=== PATIENT | male | born 1970 | race Caucasian/White ===

== ENCOUNTER 2019-01-10 08:15 | Observation (INO) | payer OTHER ==
[~2019-01-10] VITALS: Ht 160 cm; Wt 73.8 kg
[~2019-01-10 08:15] MED LIST: ASPIRIN 81M81 MG/TA2 PO; BLOOD THINNER; CELEXA 20MG20 MG/TAB PO; INDOCIN 25MG CA25 MG PO; LIPITOR 10MG10 MG PO; LOPRESSOR 225 MG/TAB PO; NITROSTAT0.4 MG/TAB SL; NORCO 325 MG-51 TAB PO; PERCOCET 325 MG1 TA2 PO; PLAVIX 75MG TAB75 MG PO; PRILOSEC 20MG20 MG PO; PROTONIX 40MG T40 MG PO; ULTRAM 50MG TAB50 MG PO; [UNRECOGNIZED DRUG - OTHER]
[2019-01-10 08:39] LABS: BASO # 0.1 (0.0-0.2); BASO % 0.7 % (0.0-2.0); EOS # 0.3 (0.0-0.7); EOS % 3.7 % (0-4.0); GRAN # 5.1 (1.4-6.5); GRAN % 62.8 % (42.2-75.2); HEMOGLOBIN 15.9 g/dl (13.5-18.0); LYMPH % 24.3 % (20.0-51.0); MEAN CELL VOLUME 88 fl (80.0-100.0); MEAN CORPUSCULAR HEMOGLOBIN 29 pg (27.0-31.0); MEAN CORPUSCULAR HGB CONC 33 g/dl (33.0-37.0); MEAN PLATELET VOLUME 9.7 fl (7.4-10.4); MONO # 0.7 (0.1-0.6); MONO % 8.3 % (1.7-9.3); PLATELET COUNT 108 K/mm3 (130-400); RED BLOOD COUNT 5.43 M/mm3 (4.20-5.60); REDCELL DISTRIBUTION WIDTH-CV 12.9 % (11.5-14.5)
[2019-01-10 08:43] LABS: INR 0.9 (0.8-3.0); PROTHROMBIN TIME 10.9 SECONDS (9.7-12.8)
[2019-01-10 08:50] LABS: ALANINE AMINOTRANSFERASE 16 U/L (21-72); ALBUMIN 4.3 gm/dL (3.5-5.0); ALKALINE PHOSPHATASE 63 U/L (50-136); ANION GAP 10 mmol/L (7-16); AST,SGOT 29 U/L (15-37); BLOOD UREA NITROGEN 18 mg/dL (9-20); CARBON DIOXIDE 24 mmol/L (22-30); CHLORIDE 108 mmol/L (98-107); CREATININE, serum 0.95 (0.66-1.25); GLUCOSE 96 mg/dL (74-106); LIPASE 48 U/L (23-300); POTASSIUM 4.1 mmol/L (3.4-5.0); SODIUM 141 mmol/L (137-145); TOTAL PROTEIN 7.4 gm/dL (6.4-8.2)
[2019-01-10 09:04] LABS: TROPONIN-I < 0.012 ng/mL (0.000-0.035)
[2019-01-10 10:13] LABS: D-DIMER < 200.00 ng/mLDDu (200-230)
--- NOTE | 2019-01-10 14:00 | NUR ---
PT ADMITTED TO FLOOR AT THIS TIME. DR. HANDLEY INTO SEE PT RIGHT AWAY.
[2019-01-10 16:08] LABS: CREATINE KINASE 44 U/L (55-170)
[2019-01-10 16:18] LABS: TROPONIN-I 3 HR POST INITIAL < 0.012 ng/mL (0.000-0.034)
[2019-01-10 16:25] VITALS: BP 130/76; PULSE 78; TEMP 97.6
--- NOTE | 2019-01-10 19:00 | NUR ---
PT HAD UNEVENTFUL AFTERNOON. PT WAS MAINLY CONSERNED ABOUT EATING, RECIEVED AN ORDER FOR PT TO HAVE A HEART HEALTHY DIET UNTIL MIDNIGHT THEN NPO AT THAT TIME. DID REVIEW THIS WITH PT. NO OTHER ISSUES OR CONSERNS VOICED. WENT OVER PLAN OF CARE AND UPCOMING PROCEDURES AND TESTS. NO QUESTIONS ASKED.
--- NOTE | 2019-01-10 19:45 | NUR ---
Patient assessed at this time. Alert and oriented, and able to make needs known. Denies having pain and discomfort. Peripheral IV to left forearm. NS running at 75 ml/hr per orders. Site is without redness, warmth, swelling, and pain. Reports SOB and dysnpea on exertion. Denies at rest. LS CTA, except right lower lobe has expiratory wheezes. HRR. BSAx4. Abdomen soft and non-tender. No edema. Continues on detox protocol. Has not been scoring enough for medication at this time. Resting in bed watching TV at this time. Call light is within reach.
[2019-01-10 20:32] VITALS: BP 136/84; PULSE 85; TEMP 98.1
[2019-01-10 21:40] VITALS: BP 134/84; PULSE 80; TEMP 97.9
[2019-01-10 23:15] VITALS: BP 148/89; PULSE 86; TEMP 98.4
[2019-01-11] VITALS (10 sets, daily range): BP systolic 102–161; BP diastolic 56–97; PULSE 79–123; TEMP 97.9–98.6
--- NOTE | 2019-01-11 02:58 | NUR ---
Patient has no been scoring high enough on detox protocol for PRN medications, max was 1 for pulse above 90. Denies having pain and discomfort. NPO since midnight for procedure in the morning. NS continues at 75 ml/hr to left AC. Denies having any questions, needs, or concerns at this time. Resting in bed with eyes closed at this time. Call light is within reach.
--- NOTE | 2019-01-11 05:46 | NUR ---
Denies having pain and discomfort. Patient did not seem to sleep much tonight, but states that he is feeling fine. Denies having pain and discomfort. Signed consent for Lexiscan today. Voices no questions or concerns regarding Lexiscan. Resting in bed watching TV at this time. Call light is within reach. NS continues at 75 ml/hr.
[2019-01-11 06:47] LABS: BASO # 0.1 (0.0-0.2); BASO % 0.8 % (0.0-2.0); EOS # 0.3 (0.0-0.7); EOS % 3.9 % (0-4.0); GRAN # 6.1 (1.4-6.5); GRAN % 70.1 % (42.2-75.2); HEMATOCRIT 44.4 % (42.0-52.0); HEMOGLOBIN 14.6 g/dl (13.5-18.0); LYMPH # 1.6 (1.2-3.4); LYMPH % 18.4 % (20.0-51.0); MEAN CELL VOLUME 88 fl (80.0-100.0); MEAN CORPUSCULAR HEMOGLOBIN 29 pg (27.0-31.0); MEAN CORPUSCULAR HGB CONC 33 g/dl (33.0-37.0); MEAN PLATELET VOLUME 9.9 fl (7.4-10.4); MONO # 0.6 (0.1-0.6); MONO % 6.6 % (1.7-9.3); PLATELET COUNT 106 K/mm3 (130-400); RED BLOOD COUNT 5.05 M/mm3 (4.20-5.60); REDCELL DISTRIBUTION WIDTH-CV 12.9 % (11.5-14.5)
[2019-01-11 07:04] LABS: CALCIUM 8.6 mg/dL (8.4-10.2); CHOLESTEROL RISK RATIO 6.1; CREATININE, serum 0.93 (0.66-1.25); POTASSIUM 3.9 mmol/L (3.4-5.0)
--- NOTE | 2019-01-11 07:49 | NUR ---
Patient went down for MRI, and is now with nuclear med for Lexiscan. Report given to day shift nurse.
[2019-01-11] MEDS ORDERED: NITROSTAT0.4 MG/TAB SL (12:21)
[2019-01-11] MEDS ORDERED: LIPITOR20 MG PO (12:22)
[2019-01-11] MEDS ORDERED: AMOXICILLIN 8751 TAB PO (12:23)
[2019-01-11] MEDS ORDERED: FLONASEALLERGY NS (12:23)
--- NOTE | 2019-01-11 14:00 | NUR ---
PT DISCHARGE EDUCATION PROVIDED. NO QUESTIONS VOICED AT THIS TIME THIS NURSE PROVIDED PT WRITTEN SCRIPTS FROM DR. EVANS, COPIES LEFT ON THE CHART. PT INFORMED ABOUT UPCOMING APPOINTMENTS THAT WHERE MADE FOR HIM AND THE LOCATIONS OF THE APPOINTMENTS. NO QUESTIONS VOICED. WORK RELEASE INCLUDED IN PAPERWORK
--- NOTE | 2019-01-11 14:45 | NUR ---
PT IV REMOVED, TELE TAKEN OFF. PT DENIED NEED FOR ESCORT OUT OF FACILITY, ACCOMPANIED.
--- NOTE | 2019-01-11 15:05 | NUR ---
SW unable to meet with patient before discharge.
== END 2019-01-11 14:45 | disposition home or self-care (01) ==
LOC: COL.ER 08:15 → MEDICAL 13:08
PROVIDERS: Emergency Medicine; Physician Assistant; ADMIT Hospitalist
DX: R07.9 Chest pain, unspecified (principal); R20.0 Anesthesia of skin; R53.1 Weakness; R25.2 Cramp and spasm; K21.9 Gastro-esophageal reflux disease without esophagitis; I25.10 Atherosclerotic heart disease of native coronary artery without angina pectoris; Z95.5 Presence of coronary angioplasty implant and graft; E78.5 Hyperlipidemia, unspecified; M43.06 Spondylolysis, lumbar region; R91.8 Other nonspecific abnormal finding of lung field; Z79.82 Long term (current) use of aspirin; F17.210 Nicotine dependence, cigarettes, uncomplicated; D69.6 Thrombocytopenia, unspecified; D18.09 Hemangioma of other sites; G43.909 Migraine, unspecified, not intractable, without status migrainosus; J32.9 Chronic sinusitis, unspecified
CPT/HCPCS: A9500; A9585; G0378; J1650; J2060; J2270; J2765; J2785; J7030; Q9967

== ENCOUNTER → 2019-01-15 | Outpatient (CLI) | payer OTHER, BC ==
[~2019-01-15] MED LIST changes: +AMOXICILLIN 8751 TAB PO; +FLONASEALLERGY NS; +LIPITOR20 MG PO
== END ==
LOC: ZCOL.LAB 16:49
DX: J32.0 Chronic maxillary sinusitis (principal)

== ENCOUNTER 2019-06-21 08:16 | Outpatient (CLI) | payer OTHER ==
[~2019-06-21] VITALS: Ht 160.1 cm; Wt 73.8 kg
[2019-06-21 09:02] VITALS: BP 140/97; PULSE 84; TEMP 98.2
[2019-06-21] MEDS ORDERED: NITROSTAT0.4 MG/TAB SL (09:06)
[2019-06-21] MEDS ORDERED: PRILOSEC 20MG20 MG PO (09:07)
[2019-06-21] MEDS ORDERED: ADVIL200 MG PO (09:08)
[2019-06-21] MEDS ORDERED: CEPHALEXIN500 M1 PO (09:58)
[2019-06-21 10:27] VITALS: BP 145/88; PULSE 87
--- NOTE | 2019-06-21 10:28 | NUR ---
Discharge instructions given to pt.Pt verbalizes understaning.Pt escorted out by this nurse.
== END 2019-06-21 10:29 | disposition home or self-care (01) ==
LOC: COL.CAR 08:16
DX: R55 Syncope and collapse (principal)

== ENCOUNTER 2021-05-25 03:29 | Inpatient (IN) | payer OTHER ==
[~2021-05-25] VITALS: Ht 160 cm; Wt 71.0 kg
[2021-05-25] VITALS (285 sets, daily range): BP systolic 121–159; BP diastolic 86–98; PULSE 75–103; TEMP 97–98.2; O2SAT 92–100
[~2021-05-25 03:29] MED LIST changes: +ADVIL200 MG PO; +CEPHALEXIN500 M1 PO
[2021-05-25 03:51] LABS: BASO # 0.1 K/mm3 (0.0-0.2); BASO % 0.8 % (0.0-2.0); EOS # 0.2 K/mm3 (0.0-0.7); EOS % 2.4 % (0-4.0); GRAN % 63.5 % (42.2-75.2); HEMATOCRIT 41.5 % (42.0-52.0); HEMOGLOBIN 14.1 g/dl (13.5-18.0); MEAN CELL VOLUME 86 fl (80.0-100.0); MEAN CORPUSCULAR HEMOGLOBIN 29 pg (27.0-31.0); MEAN CORPUSCULAR HGB CONC 34 g/dl (33.0-37.0); MEAN PLATELET VOLUME 9.9 fl (7.4-10.4); MONO # 0.6 K/mm3 (0.1-0.6); MONO % 8.2 % (1.7-9.3); PLATELET COUNT 93 K/mm3 (130-400); RED BLOOD COUNT 4.84 M/mm3 (4.20-5.60); REDCELL DISTRIBUTION WIDTH-CV 12.4 % (11.5-14.5)
[2021-05-25 04:00] LABS: PROTHROMBIN TIME 11.2 SECONDS (9.7-12.8)
[2021-05-25 04:03] LABS: PARTIAL THROMBOPLASTIN TIME 30.1 SECONDS (26.0-37.0)
[2021-05-25 04:08] LABS: ALBUMIN 3.8 gm/dL (3.5-5.0); BILIRUBIN,TOTAL 0.3 mg/dL (0.2-1.2); CALCIUM 9.5 mg/dL (8.4-10.2); CREATININE, serum 1.03 mg/dL (0.72-1.25); POTASSIUM 3.7 mmol/L (3.5-4.5); TOTAL PROTEIN 6.7 gm/dL (6.2-8.1)
[2021-05-25 04:15] LABS: TROPONIN-I 0.087 ng/mL (0.00-0.033)
--- NOTE | 2021-05-25 06:48 | NUR ---
PT ARRIVES TO MEDICAL FLOOR ROOM 351 AT 0600, PT A/OX4, INDEPENDENT, VSS, DENIES CHEST PAIN,N,V,D,. HEP GTT INFUSING AT 1000U/HR TO LAC IV. ASSESMENT COMPLETE. MED REC COMPLETE AND REVIEWED. PT ORIENTED TO FLOOR AND HOSPITAL POLICY. THIS NURSE CONTACTED PATTERNMAKER GRADER CONSULT; COMPLETE. ALL QUESTIONS/CONCERNS ANSWERED. POC DISCUSSED WITH PT. PT VERBALIZES UNDERSTANDING. CALL LIGHT WITHIN REACH.
--- NOTE | 2021-05-25 08:35 | NUR ---
NOTIFED BOBO KEMP ON pt's 3HR TROPONIN AT 0.149.
--- NOTE | 2021-05-25 09:30 | NUR ---
ASSESSMENT COMPLETE. PT COOPERATIVE WITH CARES. PT DENIES PAIN, PALPITATIONS OR DIZZINESS. PT SCHEDULED FOR HEART CATHETERIZATION. CONSENT PAPERWORK COVERED WITH PT AND SIGNED. PT STATES HE HAS NO OTHER NEEDS AT THIS TIME. CALL LIGHT WITHIN REACH.
--- NOTE | 2021-05-25 10:12 | NUR ---
Initial visit; Patient thanked Motor Teacher for looking in on him and offering God's Blessings.
--- NOTE | 2021-05-25 10:28 | NUR ---
NOTIFED BOBO KEMP ON pt's 6HR TROPONIN AT 0.154
--- NOTE | 2021-05-25 12:30 | NUR ---
PT TRANSPORTED TO [facility].
--- NOTE | 2021-05-25 12:50 | NUR ---
SEE MERGE FOR ALL MEDICATION ADMINISTRATION TIMES/DOSAGES AND INTRA/POST SEDATION ASSESSMENT.
--- NOTE | 2021-05-25 13:55 | NUR ---
Arrived to the unit from the microbiology lab assistant; alert and slightly drowsy. Right radial site soft with no hematoma formation. VS WNL. Call light left within reach.
--- NOTE | 2021-05-25 16:13 | NUR ---
Information Tech met with patient and patient's , Abdirashid (ph#[phone]) to discuss discharge planning. Patient lives in [place] with his and sees Griselda Martinez, Nurse Practitioner at [facility] for primary care. [facility] and advised that he has had difficulty affording medications due to lack of insurance however he now has insurance through his employer. Patient's Abdirashid advised his insurance ([employer]) started May 17 and they have not received the new card yet. Abdirashid advised they should be good on medications since patient now has coverage. Patient does not use any DME and reports independence with ADLS. Patient does not have Advance Directives and is not interested in completing DPOA-HC at this time. Patient plans to return home upon discharge. SW contacted Financial Counseling to verify new insurance. Discharge Plan: Home
--- NOTE | 2021-05-25 18:03 | NUR ---
Assisted up to use the bathroom; tolerated well.
--- NOTE | 2021-05-25 18:55 | NUR ---
Radial site assessd with shift supervisor rn RN. Area soft with pulse palpated. 2ml removed from TR band.
--- NOTE | 2021-05-25 20:43 | NUR ---
Assessment complete and charted. All air removed from TR band. Site remains free of complications. Denies needs at this time. Call light in reach.
--- NOTE | 2021-05-25 23:15 | NUR ---
Patient rating headache 9/10. Given PRN fentanyl.
[2021-05-26] VITALS (373 sets, daily range): BP systolic 129–140; BP diastolic 80–96; PULSE 64–71; TEMP 96.6–97.8; O2SAT 93–98
[2021-05-26 05:00] LABS: BASO # 0.1 K/mm3 (0.0-0.2); BASO % 0.7 % (0.0-2.0); EOS # 0.2 K/mm3 (0.0-0.7); EOS % 2.5 % (0-4.0); GRAN # 4.6 K/mm3 (1.4-6.5); GRAN % 63.6 % (42.2-75.2); HEMATOCRIT 44.3 % (42.0-52.0); HEMOGLOBIN 14.3 g/dl (13.5-18.0); LYMPH # 1.8 K/mm3 (1.2-3.4); LYMPH % 25.5 % (20.0-51.0); MEAN CELL VOLUME 89 fl (80.0-100.0); MEAN CORPUSCULAR HEMOGLOBIN 29 pg (27.0-31.0); MEAN CORPUSCULAR HGB CONC 32 g/dl (33.0-37.0); MEAN PLATELET VOLUME 10.3 fl (7.4-10.4); MONO # 0.5 K/mm3 (0.1-0.6); MONO % 7.4 % (1.7-9.3); PLATELET COUNT 80 K/mm3 (130-400); RED BLOOD COUNT 4.98 M/mm3 (4.20-5.60); REDCELL DISTRIBUTION WIDTH-CV 12.6 % (11.5-14.5)
[2021-05-26 05:17] LABS: CALCIUM 9.1 mg/dL (8.4-10.2); CREATININE, serum 0.94 mg/dL (0.72-1.25); POTASSIUM 4.1 mmol/L (3.5-4.5)
--- NOTE | 2021-05-26 05:32 | NUR ---
PATIENT REPORTS HEADACHE 01/23. GIVEN PRN FENTANYL
--- NOTE | 2021-05-26 06:19 | NUR ---
Patient had headache during night. Nitro gtt was discontinued per Dr. Hernandez and was given orders for PRN fentanyl. Patient received x2 doses during night for headache. Otherwise uneventful night. Resting in bed this AM.
--- NOTE | 2021-05-26 07:12 | NUR ---
Report given to NAVYA Cedeno
[2021-05-26] MEDS ORDERED: BRILINTA90 MG PO (11:58)
[2021-05-26] MEDS ORDERED: TOPROL XL 50MG50 MG PO (11:58)
[2021-05-26] MEDS ORDERED: LIPITOR 80MG80 MG PO (11:58)
[2021-05-26] MEDS ORDERED: THIAMINE 1100 MG/TAB PO (11:59)
[2021-05-26] MEDS ORDERED: COMPLETE MULTI1 TAB PO (11:59)
[2021-05-26] MEDS ORDERED: FOLIC ACID 11 MG/TA1 PO (11:59)
--- NOTE | 2021-05-26 12:35 | NUR ---
Follow-up visit; Patient thanked Hvac Service Tech for looking in on him and offering God's blessings. Patient appeared to be anxious and when asked he requested that Hvac Service Tech contact the person who was going to come in sometime to discuss his financial issues. Hvac Service Tech spoke with his nurse and requested a [employer]. Patient thanked Hvac Service Tech for attempting to move his dismissal and focus of his concern along.
--- NOTE | 2021-05-26 13:00 | NUR ---
Assisted out to ER entrance with spouse following. Patient alert and oriented and in no distress upon discharge.
--- NOTE | 2021-05-26 13:25 | NUR ---
[facility] contacted due to not hearing anything from them regarding the patient's insurance coverage for a medication that is new to him. Solar Sales Specialist states that she had not had time to call the patient's insurance company to confirm coverage details. Medication sample voucher provided to the pharmacy with the notification that the patient is getting ready to dc. Solar Sales Specialist is planning on still reaching out to the insurance company but instructed that when the patient get's discharged he needs to be sent with a copy of the card. Medication voucher provided to the patient and the patient's with the education that the pharmacy is in the process of running his eligibility coverage against the new medication, but that the pharmacy would like for them to still bring the sample voucher with them at the time of warehouse picker.
== END 2021-05-26 13:30 | disposition home or self-care (01) | DRG 247 ==
LOC: COL.ER 03:29 → ICU 04:29 → MEDICAL 04:29 → ICU 13:15
PROVIDERS: Emergency Medicine; Physician Assistant; ADMIT Internal Medicine
PROC: 027135Z Dilation of Coronary Artery, Two Arteries with Two Drug-eluting Intraluminal Devices, Percutaneous Approach (ICD-10-PCS; principal; 2021-05-25)
PROC: 4A023N7 Measurement of Cardiac Sampling and Pressure, Left Heart, Percutaneous Approach (ICD-10-PCS; 2021-05-25)
PROC: B2111ZZ Fluoroscopy of Multiple Coronary Arteries using Low Osmolar Contrast (ICD-10-PCS; 2021-05-25)
DX: I21.4 Non-ST elevation (NSTEMI) myocardial infarction (principal); I25.10 Atherosclerotic heart disease of native coronary artery without angina pectoris; E78.5 Hyperlipidemia, unspecified; K21.9 Gastro-esophageal reflux disease without esophagitis; F17.210 Nicotine dependence, cigarettes, uncomplicated; M77.8 Other enthesopathies, not elsewhere classified; M75.101 Unspecified rotator cuff tear or rupture of right shoulder, not specified as traumatic; G43.909 Migraine, unspecified, not intractable, without status migrainosus; Z95.5 Presence of coronary angioplasty implant and graft; Z79.82 Long term (current) use of aspirin; Z91.14 Patient's other noncompliance with medication regimen
CPT/HCPCS: 99223-AI; 99239; C1769; C1874; C1887; C9600; C9601; J0583; J1644; J2250; J3010; Q9967